=== PATIENT | male | born 1990 | race Caucasian/White ===

== ENCOUNTER 2017-06-10 15:45 | Inpatient (IN) | payer OTHER ==
[~2017-06-10] VITALS: Ht 180.3 cm; Wt 65.8 kg
[~2017-06-10 15:45] MED LIST: OXYC-302 PO; SULF500T36 PO
[2017-06-10 16:23] LABS: BASOPHILS # (AUTO) 0.06 x10^3/uL (0-0.1); BASOPHILS % (AUTO) 1 % (0-1); EOSINOPHILS # (AUTO) 0.09 x10^3/uL (0-0.4); EOSINOPHILS % (AUTO) 2 % (1-7); LYMPHOCYTES # (AUTO) 1.61 x10^3/uL (1-3.4); LYMPHOCYTES % (AUTO) 26 % (22-44); MD NO; MEAN CORPUSCULAR HEMOGLOBIN 29.5 pg (27.5-34.5); MEAN CORPUSCULAR HGB CONC 34.1 g/dL (33.2-36.2); MEAN CORPUSCULAR VOLUME 86.6 fL (81-97); MEAN PLATELET VOLUME 8.8 fL (7.4-10.4); MONOCYTES # (AUTO) 0.48 x10^3/uL (0.2-0.8); MONOCYTES % (AUTO) 8 % (2-9); NEUTROPHILS # (AUTO) 3.91 x10^3/uL (1.8-6.8); NEUTROPHILS % (AUTO) 64 % (42-75); PLATELET COUNT 322 x10^3/uL (130-400); RED BLOOD COUNT 4.43 x10^6/uL (4.38-5.82)
[2017-06-10] MEDS ORDERED: SODIUM CHLORIDE FLUSH 10ML SYR IVF ONE (16:30)
[2017-06-10 16:36] LABS: ALANINE AMINOTRANSFERASE 20 U/L (12-78); ALBUMIN 3.9 g/dL (3.4-5.0); ANION GAP 8 mmol/L (5-15); CHLORIDE 108 mmol/L (98-107); CREATININE 0.83 mg/dL (0.7-1.3)
[2017-06-10 16:38] LABS: ALKALINE PHOSPHATASE 52 U/L (45-117); BILIRUBIN,TOTAL 0.4 mg/dL (0.2-1.0); TOTAL PROTEIN 7.1 g/dL (6.4-8.2)
[2017-06-10] MEDS ORDERED: OMNIPAQUE 350 MG/ML, 100ML BOTTLE ONE (18:30)
[2017-06-10] MEDS ORDERED: hydrALAzine 20 MG/ML, 1ML IVPush PRN (20:00)
[2017-06-10] MEDS ORDERED: ONDANSETRON 2MG/ML, 2ML IVPush PRN (20:00)
[2017-06-10 20:02] VITALS: BP 122/79
[2017-06-10] MEDS: D5%-0.45% NACL 1,000 ML IV SCH (20:17)
[2017-06-11 01:35] VITALS: BP 134/77
[2017-06-11] MEDS: D5%-0.45% NACL 1,000 ML IV SCH ×3 (04:24→21:37)
[2017-06-11 06:13] LABS: BASOPHILS # (AUTO) 0.03 x10^3/uL (0-0.1); BASOPHILS % (AUTO) 1 % (0-1); EOSINOPHILS # (AUTO) 0.09 x10^3/uL (0-0.4); EOSINOPHILS % (AUTO) 1 % (1-7); LYMPHOCYTES # (AUTO) 1.37 x10^3/uL (1-3.4); LYMPHOCYTES % (AUTO) 20 % (22-44); MD NO; MEAN CORPUSCULAR HEMOGLOBIN 29.1 pg (27.5-34.5); MEAN CORPUSCULAR HGB CONC 33.8 g/dL (33.2-36.2); MEAN CORPUSCULAR VOLUME 86.3 fL (81-97); MEAN PLATELET VOLUME 8.7 fL (7.4-10.4); MONOCYTES # (AUTO) 0.56 x10^3/uL (0.2-0.8); MONOCYTES % (AUTO) 8 % (2-9); NEUTROPHILS # (AUTO) 4.96 x10^3/uL (1.8-6.8); NEUTROPHILS % (AUTO) 71 % (42-75); PLATELET COUNT 324 x10^3/uL (130-400); RED BLOOD COUNT 4.74 x10^6/uL (4.38-5.82); RED CELL DISTRIBUTION WIDTH 14.2 % (9.4-14.8)
[2017-06-11 06:17] LABS: ANION GAP 7 mmol/L (5-15); CALCIUM 8.4 mg/dL (8.5-10.1); CHLORIDE 106 mmol/L (98-107); CREATININE 0.95 mg/dL (0.7-1.3)
[2017-06-11 07:53] VITALS: BP 116/71
[2017-06-11] MEDS: SULFASALAZINE 500 MG TABLET PO SCH ×4 (10:26→21:37)
[2017-06-11] MEDS: methylPREDNISolone SOD SUCC 40 MG/ML IV SCH ×2 (11:46→16:40)
[2017-06-11 13:03] LABS: CLOSTRIDIUM DIFFICILE ANTIGEN NEGATIVE; CLOSTRIDIUM DIFFICILE TOXIN NEGATIVE (Negative)
[2017-06-11 14:09] VITALS: BP 120/74
[2017-06-11 20:03] VITALS: BP 128/71
[2017-06-12 01:27] VITALS: BP 107/63
[2017-06-12] MEDS: D5%-0.45% NACL 1,000 ML IV SCH ×3 (03:37→20:53)
[2017-06-12 05:10] LABS: BASOPHILS # (AUTO) 0.02 x10^3/uL (0-0.1); BASOPHILS % (AUTO) 0 % (0-1); EOSINOPHILS % (AUTO) 0 % (1-7); LYMPHOCYTES # (AUTO) 1.17 x10^3/uL (1-3.4); LYMPHOCYTES % (AUTO) 9 % (22-44); MD NO; MEAN CORPUSCULAR HEMOGLOBIN 28.8 pg (27.5-34.5); MEAN CORPUSCULAR HGB CONC 33.4 g/dL (33.2-36.2); MEAN CORPUSCULAR VOLUME 86.2 fL (81-97); MEAN PLATELET VOLUME 9.1 fL (7.4-10.4); MONOCYTES # (AUTO) 0.76 x10^3/uL (0.2-0.8); MONOCYTES % (AUTO) 6 % (2-9); NEUTROPHILS # (AUTO) 10.66 x10^3/uL (1.8-6.8); NEUTROPHILS % (AUTO) 85 % (42-75); PLATELET COUNT 353 x10^3/uL (130-400); RED BLOOD COUNT 4.61 x10^6/uL (4.38-5.82)
[2017-06-12 05:14] LABS: ALBUMIN 3.7 g/dL (3.4-5.0); ANION GAP 5 mmol/L (5-15); CALCIUM 9.1 mg/dL (8.5-10.1); CHLORIDE 107 mmol/L (98-107)
[2017-06-12 05:16] LABS: C-REACTIVE PROTEIN, QUANT 0.09 mg/dL (0.02-0.49); CREATININE 0.76 mg/dL (0.7-1.3)
[2017-06-12] MEDS: SULFASALAZINE 500 MG TABLET PO SCH ×4 (07:20→21:39)
[2017-06-12] MEDS: methylPREDNISolone SOD SUCC 40 MG/ML IV SCH ×3 (08:14→17:02)
[2017-06-12 08:35] VITALS: BP 120/61
[2017-06-12 12:49] VITALS: BP 118/71
[2017-06-12 20:59] VITALS: BP 120/74
[2017-06-13 00:11] VITALS: BP 122/75
[2017-06-13] MEDS: D5%-0.45% NACL 1,000 ML IV SCH (05:13)
[2017-06-13] MEDS: SULFASALAZINE 500 MG TABLET PO SCH ×4 (05:27→22:05)
[2017-06-13 05:52] LABS: BASOPHILS # (AUTO) 0.01 x10^3/uL (0-0.1); BASOPHILS % (AUTO) 0 % (0-1); EOSINOPHILS % (AUTO) 0 % (1-7); LYMPHOCYTES # (AUTO) 1.43 x10^3/uL (1-3.4); LYMPHOCYTES % (AUTO) 11 % (22-44); MD NO; MEAN CORPUSCULAR HEMOGLOBIN 28.7 pg (27.5-34.5); MEAN CORPUSCULAR HGB CONC 33.1 g/dL (33.2-36.2); MEAN CORPUSCULAR VOLUME 86.9 fL (81-97); MEAN PLATELET VOLUME 9.2 fL (7.4-10.4); MONOCYTES # (AUTO) 1.03 x10^3/uL (0.2-0.8); MONOCYTES % (AUTO) 8 % (2-9); NEUTROPHILS # (AUTO) 10.83 x10^3/uL (1.8-6.8); NEUTROPHILS % (AUTO) 81 % (42-75); PLATELET COUNT 307 x10^3/uL (130-400); RED BLOOD COUNT 4.27 x10^6/uL (4.38-5.82); RED CELL DISTRIBUTION WIDTH 14.4 % (9.4-14.8)
[2017-06-13 06:01] LABS: ALBUMIN 3.6 g/dL (3.4-5.0); ANION GAP 7 mmol/L (5-15); CHLORIDE 108 mmol/L (98-107); CREATININE 0.82 mg/dL (0.7-1.3)
[2017-06-13 07:08] VITALS: BP 98/52
[2017-06-13] MEDS: methylPREDNISolone SOD SUCC 40 MG/ML IV SCH ×3 (07:55→17:12)
[2017-06-13 10:09] VITALS: BP 122/66
[2017-06-13 13:53] VITALS: BP 107/65
[2017-06-13 20:05] VITALS: BP 129/77
[2017-06-14 00:41] VITALS: BP 101/59
[2017-06-14 05:52] LABS: BASOPHILS # (AUTO) 0.04 x10^3/uL (0-0.1); BASOPHILS % (AUTO) 0 % (0-1); EOSINOPHILS % (AUTO) 0 % (1-7); LYMPHOCYTES # (AUTO) 2.01 x10^3/uL (1-3.4); LYMPHOCYTES % (AUTO) 15 % (22-44); MD NO; MEAN CORPUSCULAR HEMOGLOBIN 29.3 pg (27.5-34.5); MEAN CORPUSCULAR HGB CONC 33.7 g/dL (33.2-36.2); MEAN CORPUSCULAR VOLUME 86.9 fL (81-97); MEAN PLATELET VOLUME 9.2 fL (7.4-10.4); MONOCYTES # (AUTO) 1.15 x10^3/uL (0.2-0.8); MONOCYTES % (AUTO) 9 % (2-9); NEUTROPHILS # (AUTO) 9.92 x10^3/uL (1.8-6.8); NEUTROPHILS % (AUTO) 76 % (42-75); PLATELET COUNT 320 x10^3/uL (130-400); RED CELL DISTRIBUTION WIDTH 14.6 % (9.4-14.8)
[2017-06-14 05:56] LABS: CHLORIDE 105 mmol/L (98-107)
[2017-06-14 06:00] LABS: ANION GAP 7 mmol/L (5-15); CALCIUM 8.9 mg/dL (8.5-10.1); CREATININE 0.88 mg/dL (0.7-1.3)
[2017-06-14] MEDS: SULFASALAZINE 500 MG TABLET PO SCH ×2 (06:20→11:54)
[2017-06-14 07:07] VITALS: BP 116/70
[2017-06-14] MEDS: methylPREDNISolone SOD SUCC 40 MG/ML IV SCH (07:33)
[2017-06-14] MEDS ORDERED: PRED10TA14 PO (09:54)
[2017-06-14] MEDS ORDERED: SULF500T PO (09:54)
== END 2017-06-14 12:00 | disposition home or self-care (01) | DRG 386 ==
LOC: ED 16:38 → EDIP 18:49 → 4NOR 19:56
PROVIDERS: ADMIT Family Medicine; ATTEND Family Medicine
DX: K50.912 Crohn's disease, unspecified, with intestinal obstruction (principal); K56.690 Other partial intestinal obstruction; F12.90 Cannabis use, unspecified, uncomplicated; F17.210 Nicotine dependence, cigarettes, uncomplicated; K50.00 Crohn's disease of small intestine without complications; D64.9 Anemia, unspecified; Z91.14 Patient's other noncompliance with medication regimen; Z90.49 Acquired absence of other specified parts of digestive tract; Z82.49 Family history of ischemic heart disease and other diseases of the circulatory system
CPT/HCPCS: 36415; 74021; 74177; 80048; 80053; 82040; 83690; 83735; 85014; 85018; 85025; 86140; 87324; 87329; 99285; Q9967; J2920

== ENCOUNTER 2018-07-28 10:13 | Emergency (ER) | payer OTHER ==
[~2018-07-28] VITALS: Ht 180.3 cm; Wt 69.9 kg
[~2018-07-28 10:13] MED LIST changes: +PRED10TA14 PO; +SULF500T PO
[2018-07-28 10:15] VITALS: BP 141/89
--- NOTE | 2018-07-28 10:23 | NUR ---
PT HAS RASH/LESIONS LEFT UPPER CHEST AND BACK THAT STARTED YOUSIF. STATES IT BESS WHEN HE LIES ON IT
== END 2018-07-28 11:07 | disposition home or self-care (01) ==
LOC: ED 10:58
DX: B02.9 Zoster without complications (principal); F17.200 Nicotine dependence, unspecified, uncomplicated; K50.90 Crohn's disease, unspecified, without complications
CPT/HCPCS: 99283